=== PATIENT | male | born 1995 | race Caucasian/White ===

== ENCOUNTER → 2023-07-22 | Outpatient (CLI) | payer BC ==
[2023-07-22 12:55] LABS: BASOPHILS % 2.3 % (0.0-2.0); EOSINOPHILS % 2.3 % (0.0-5.0); HEMATOCRIT. 43.8 % (42.0-52.0); HEMOGLOBIN. 15.3 g/dL (14.0-18.0); MEAN CORPUSCULAR HEMOGLOBIN 31.5 pg (28.0-32.0); MEAN CORPUSCULAR VOLUME 89.9 fL (80.0-94.0); MEAN PLATELET VOLUME 8.1 fl (7.4-10.4); MONOCYTES % 9.1 % (2.0-8.0); NEUTROPHILS % 52.3 % (40.0-76.0); PLATELET 238 x1000/uL (130-400); RED BLOOD CELL COUNT 4.87 mill/uL (4.7-6.1); RED CELL DISTRIBUTION WIDTH 13.2 % (11.6-14.6); WHITE BLOOD COUNT 5.2 x1000/uL (4.5-11.0)
[2023-07-22 12:58] LABS: CLARITY URINE CLEAR (CLEAR); COLOR URINE YELLOW (YELLOW); GLUCOSE URINE NEGATIVE (NEGATIVE); KETONES URINE NEGATIVE (NEGATIVE); LEUKOCYTE ESTERASE URINE NEGATIVE (NEGATIVE); NITRITE URINE NEGATIVE (NEGATIVE); OCCULT BLOOD URINE NEGATIVE (NEGATIVE); PH URINE 7.5 (4.5-8.0); PROTEIN URINE NEGATIVE (NEGATIVE); SPECIFIC GRAVITY URINE 1.019 (1.005-1.030)
[2023-07-22 13:06] LABS: CARBON DIOXIDE 31 mEq/L (21-32); CHLORIDE 105 mEq/L (98-107); SODIUM 139 mEq/L (136-145)
[2023-07-22 13:07] LABS: CALCIUM 9.5 mg/dL (8.7-10.4)
[2023-07-22 13:11] LABS: IRON 76 ug/dL (65-175)
[2023-07-22 13:12] LABS: CREATININE 0.9 mg/dL (0.6-1.3); GLUCOSE 94 mg/dL (70-105); TRIGLYCERIDE 148 mg/dL (0-150); UREA NITROGEN BLOOD 13 mg/dL (9-23)
[2023-07-22 13:13] LABS: ALANINE AMINOTRANSFERASE 38 IU/L (10-49); LDL CHOLESTEROL 132 mg/dL (5-100)
[2023-07-22 13:14] LABS: ALBUMIN 4.6 g/dL (3.2-4.8); ASPARTATE AMINOTRANSFERASE 34 IU/L (<34); BILIRUBIN TOTAL 1.1 mg/dL (0.1-1.0); CHOLESTEROL 206 mg/dL (<200); HDL CHOLESTEROL 39 mg/dL (>55); PROTEIN TOTAL 7.7 g/dL (6.0-8.3); TOTAL IRON BINDING CAPACITY 369 ug/dl (250-425)
[2023-07-22 13:16] LABS: T4 FREE 1.41 ng/dL (0.89-1.76); THYROID STIMULATING HORMONE 1.38 uIU/mL (0.55-4.78)
[2023-07-22 13:31] LABS: FOLIC ACID (FOLATE) SERUM 11.08 ng/mL (>5.38); VITAMIN B12 SERUM 109 pg/mL (211-911)
[2023-07-22 13:32] LABS: FERRITIN 129 ng/mL (22-322)
[2023-07-22 14:04] LABS: HEPATITIS C AB NON REACTIVE (Neg) (Negative)
[2023-07-22 16:04] LABS: ERYTHROCYTE SEDIMENTATION RATE 3 mm/hr (0-15)
[2023-07-24 06:11] LABS: VITAMIN D 25-OH 15.5 ng/mL (30.0-100.0)
== END | disposition home or self-care (01) ==
LOC: LAB 12:18
PROVIDERS: ATTEND Family Medicine Adult Medicine
DX: Z00.00 Encounter for general adult medical examination without abnormal findings (principal); B97.89 Other viral agents as the cause of diseases classified elsewhere; D50.9 Iron deficiency anemia, unspecified
CPT/HCPCS: 36415; 80053; 80061; 81003; 82306; 82607; 82728; 82746; 83036; 83540; 83550; 84439; 84443; 85025; 85651; 86705; 86787